=== PATIENT | female | born 1940 | race Caucasian/White ===

== ENCOUNTER → 2017-01-18 | Outpatient (CLI) | payer OTHER | LOC: BMCIMAGING 09:39 | PROVIDERS: ATTEND Podiatrist Foot & Ankle Surgery | DX: M84.374A Stress fracture, right foot, initial encounter for fracture (principal); X58.XXXA Exposure to other specified factors, initial encounter ==

== ENCOUNTER → 2017-02-27 | Outpatient (CLI) | payer OTHER | LOC: BMCIMAGING 08:36 | PROVIDERS: ATTEND Podiatrist Foot & Ankle Surgery | DX: S92.324D Nondisplaced fracture of second metatarsal bone, right foot, subsequent encounter for fracture with routine healing (principal) ==

== ENCOUNTER → 2017-06-14 | Outpatient (CLI) | payer OTHER | LOC: BMCIMAGING 10:49 | PROVIDERS: ATTEND Podiatrist Foot & Ankle Surgery | DX: M25.571 Pain in right ankle and joints of right foot (principal) ==

== ENCOUNTER → 2017-08-22 | Outpatient (CLI) | payer OTHER ==
[~2017-08-22] MED LIST: BUPIVACAINE 0.5% 30 ML SDV ONE
== END ==
LOC: FIMAGING 09:15
PROVIDERS: ATTEND Surgery
DX: Z12.31 Encounter for screening mammogram for malignant neoplasm of breast (principal); Z85.3 Personal history of malignant neoplasm of breast
CPT/HCPCS: G0202

== ENCOUNTER → 2018-01-22 | Outpatient (CLI) | payer OTHER | LOC: FIMAGING 09:05 | PROVIDERS: ATTEND Internal Medicine | DX: Z13.820 Encounter for screening for osteoporosis (principal); M85.89 Other specified disorders of bone density and structure, multiple sites; M48.54XA Collapsed vertebra, not elsewhere classified, thoracic region, initial encounter for fracture; Z78.0 Asymptomatic menopausal state ==

== ENCOUNTER 2018-05-02 07:14 | Emergency (ER) | payer OTHER ==
[2018-05-02] MEDS ORDERED: NS 1,000 ML IV ONE (07:43)
--- NOTE | 2018-05-02 07:45 | EDPHY ---
HPI/HX/ROS/PE/MDM Narrative: CHIEF COMPLAINT:"Can not pee." HPI: The patient is a 77-year-old female with history of hypertension. She states that 3 days ago she was diagnosed with the UTI and was initially started on Bactrim. She developed a"funny feeling"around her mouth but no rash and was switched to Macrobid 2 days ago. This morning she awoke and felt like she was unable to urinate. She denies fever, abdominal pain. She states that she has only been drinking 4 oz glass of water a couple times a day. She denies chest pain or shortness of breath. REVIEW OF SYSTEMS: Aside from elements discussed in the HPI, a comprehensive 10-point review of systems was reviewed and is negative. PMH: Includes hypertension, no known history of kidney disease. SOCIAL HISTORY: , lives with . PHYSICAL EXAM: General:Patient is alert, in no acute distress. ENT:Eyes are normal to inspection. ENT inspection normal. Neck: Normal inspection. Full range of motion. Respiratory:No respiratory distress. Breath sounds normal bilaterally. Cardiovascular: Regular rate and rhythm. Strong peripheral pulses. Normal cap refill. Abdomen:The abdomen is nontender to palpation. There are no peritoneal signs. There are normal bowel sounds. Back: Normal to inspection. No tenderness to palpation. Skin: Normal color. No rash. Warm and dry. Extremities: Splint is noted on the left lower extremity. Neuro: Oriented x3. Normal motor function. Normal sensory function. MDM: This patient presents with proceed inability to urinate, but is able to urinate a small amount here which is very concentrated. We performed blood work to ensure that there are no signs of acute renal failure, thankfully her creatinine is normal. We treated her with 1 L of IV normal saline and she is able to urinate. I think she is safe for discharge home with close follow-up by her PCP. There are no signs of septic shock or acute abdomen. - Data Points Laboratory Results: 05/02/18 05/02/18 07:56 07:30 POC Hgb 13.3 gm/dL gm/dL (12.6-16.3) POC Hct 39 % % (38-47) POC Sodium 139 mEq/L mEq/L (135-145) POC Potassium 3.7 mEq/L mEq/L (3.3-5.0) POC Chloride 104 mEq/L mEq/L (97-110) POC BUN 13 mg/dL mg/dL (7-23) POC Creatinine 1.0 mg/dL mg/dL (0.6-1.0) POC Glucose 96 mg/dL mg/dL (70-100) Urine Color ORANGE Urine Appearance HAZY Urine pH 5.5 (5.0-7.5) Ur Specific [place] >= 1.030 (1.002-1.030) Urine Protein 1+ H (NEGATIVE) Urine Ketones TRACE H (NEGATIVE) Urine Blood NEGATIVE (NEGATIVE) Urine Nitrate TNP Urine Bilirubin NEGATIVE (NEGATIVE) Urine Urobilinogen 1.0 EU EU (0.2-1.0) Ur Leukocyte Esterase TNP Urine Glucose NEGATIVE (NEGATIVE) Medications Given: Discontinued Medications Sodium Chloride (Ns) 1,000 mls @ 0 mls/hr IV EDNOW ONE; Wide Open PRN Reason: Protocol Stop: 05/02/18 07:44 Last Admin: 05/02/18 07:53 Dose: 1,000 mls Point of Care Test Results: Chemistry 05/02/18 07:56 POC Sodium 139 mEq/L mEq/L (135-145) POC Potassium 3.7 mEq/L mEq/L (3.3-5.0) POC Chloride 104 mEq/L mEq/L (97-110) POC BUN 13 mg/dL mg/dL (7-23) POC Creatinine 1.0 mg/dL mg/dL (0.6-1.0) POC Glucose 96 mg/dL mg/dL (70-100) ISTAT H&H 05/02/18 07:56 POC Hgb 13.3 gm/dL gm/dL (12.6-16.3) POC Hct 39 % % (38-47) General Time Seen by Provider: 05/02/18 07:27 Initial Vital Signs: Initial Vital Signs Temperature (C) 36.5 C 05/02/18 07:19 Heart Rate 59 L 05/02/18 07:19 Respiratory Rate 16 05/02/18 07:19 Blood Pressure 156/77 H 05/02/18 07:19 O2 Sat (%) 97 05/02/18 07:19 O2 Delivery Mode Room Air Allergies/Adverse Reactions: Sulfa (Sulfonamide Antibiotics) Allergy (Verified 05/02/18 07:17) Home Medications: Medication Instructions Recorded Irbesartan/Hydrochlorothiazide 0.5 each PO DAILY 08/29/15 [Avalide 150-12.5 mg Tablet] SIMVASTATIN 10 mg PO HS 08/29/15 Macrobid 05/02/18 Departure - Departure Disposition: Home, Routine, Self-Care Clinical Impression: Dehydration, Urinary tract infection Condition: Good Instructions: Dehydration (ED) Additional Instructions: Drink plenty of water. Follow up with your primary physician within 72 hr. Return to the emergency department for fever, abdominal pain, decreased urination or other concerns. Referrals: Carolyn Benavidez MD [Primary Care Provider] - As per Instructions
[2018-05-02 09:33] VITALS: BP 151/79
== END 2018-05-02 09:33 | disposition home or self-care (01) ==
DX: N39.0 Urinary tract infection, site not specified (principal); E86.9 Volume depletion, unspecified; I10 Essential (primary) hypertension
CPT/HCPCS: 82435-PO; 82565-PO; 82947-PO; 84132-PO; 84295-PO; 84520-PO; 85014-PO

== ENCOUNTER → 2018-09-08 | Outpatient (CLI) | payer OTHER | LOC: FIMAGING 15:32 | PROVIDERS: ATTEND Internal Medicine | DX: Z12.31 Encounter for screening mammogram for malignant neoplasm of breast (principal); Z85.3 Personal history of malignant neoplasm of breast; Z92.3 Personal history of irradiation ==

== ENCOUNTER 2018-11-05 13:29 | Emergency (ER) | payer OTHER ==
[2018-11-05 14:09] VITALS: BP 136/81
--- NOTE | 2018-11-05 14:16 | EDPHY ---
H & P Time Seen by Provider: 11/05/18 13:40 HPI/ROS: HPI Elevated blood pressure. 78-year-old female by private vehicle with her . The patient has a history of insomnia and hypertension. She reports that for the last 2-3 days or blood pressures have been elevated. She reports this morning her blood pressure has been elevated even more so when she felt a sensation of pulsating in her temples which she describes as mild lightheadedness associated with this. She also tells me that she has had a hard time sleeping. She has tried multiple different sleep medications and still has a hard time sleeping. She is feeling better at this time. She denies any chest pain. No shortness of breath. No problems urinating. No headache. No blurry vision. No lightheadedness currently. ROS: Constitutional: No fever, no chills. As above. Eyes: No discharge. No changes in vision. Respiratory: No cough. No shortness of breath. Cardiac: No chest pain, no palpitations. Gastrointestinal: No abdominal pain, no vomiting, no diarrhea. Genitourinary: No hematuria. No dysuria or increased frequency with urination. Musculoskeletal: No back pain. No neck pain. No myalgias or arthralgias. Neurological: No headache. No focal weakness or altered sensation. Past medical history: Hypertension, hyperlipidemia, meniscus repair, left knee replacement, tonsillectomy, appendectomy, left foot surgery. Her primary care physician is Dr. Carolyn Benavidez. Social history: Nonsmoker. No alcohol. Here with her . Physical Exam: General Appearance: Alert, no distress. This patient is responding to questions appropriately and in full sentences. This patient appears well- hydrated and well-nourished. Eyes: Pupils equal and round no pallor or injection. No lid edema, erythema or injection. Respiratory: There are no retractions, lungs are clear to auscultation with good air movement bilaterally. Cardiovascular: Regular rate and rhythm. No murmur. Gastrointestinal: Abdomen is soft and nontender, no masses, bowel sounds normal. No focal tenderness at McBurney's point. No Montes sign. Neurological: Motor sensory function is grossly intact. Cranial nerves are normal. Gait is normal. Skin: Warm and dry, no rashes. Musculoskeletal: Neck is supple and nontender. Extremities are symmetrical. All joints range without pain or impingement. Psychiatric: No agitation. No depression. Database: EKG: EKG time is 1:51 p.m.; EKG shows a narrow complex normal sinus rhythm with a ventricular rate of 51. Atrial premature complex noted. The OK, QRS, QT intervals are within normal limits. There are no ST-T wave changes indicative of ischemic or injury pattern. No evidence of right heart strain. Interpreted by me. Imaging: Procedures: Emergency department course: Triage vital signs reviewed. She is hypertensive at 182/86. Triage vital signs are otherwise normal. The patient presents to the emergency department concerned about her elevated blood pressure. Other than noted above she has been asymptomatic and she has been asymptomatic in the emergency department. On my evaluation of the patient her blood pressure is 143/72. Repeat blood pressure at 2:09 p.m. is 136/81. I discussed this with her. She is feeling much better. At this time she does feel comfortable going home with her . I do not feel she requires any additional emergency department workup. I explained that her lack of sleep may be causing her blood pressure to be elevated. She will follow up with her primary care physician Dr. Carolyn Benavidez in the next 1-2 days for re-evaluation. She currently takes Ambien as needed to help her sleep. Return to emergency department precautions were reviewed with her. All of her questions were answered. She was discharged from the emergency department in good condition with her . Differential Diagnosis: The differential diagnosis on this patient includes but is not limited to uncontrolled hypertension. CVA, hypertensive emergency unlikely. This represents a partial list of diagnoses considered. These considerations are based on history, physical exam, past history, reassessment and diagnostic testing. Smoking Status: Never smoked Constitutional: Initial Vital Signs Temperature (C) 36.4 C 11/05/18 13:32 Heart Rate 98 11/05/18 13:32 Respiratory Rate 16 11/05/18 13:32 Blood Pressure 182/86 H 11/05/18 13:32 O2 Sat (%) 92 11/05/18 13:32 O2 Delivery Mode Room Air Allergies/Adverse Reactions: Sulfa (Sulfonamide Antibiotics) Allergy (Verified 05/02/18 07:17) Home Medications: Medication Instructions Recorded Irbesartan/Hydrochlorothiazide 0.5 each PO DAILY 08/29/15 [Avalide 150-12.5 mg Tablet] SIMVASTATIN 10 mg PO HS 08/29/15 Macrobid 05/02/18 Departure - Departure Disposition: Home, Routine, Self-Care Clinical Impression: Hypertension, Insomnia Condition: Good Instructions: Hypertension (ED), Insomnia (ED) Additional Instructions: Read and follow provided instructions. Follow-up with your primary care physician in 1-2 days for re-evaluation as discussed. Explained to Dr. Benavidez even having a hard time sleeping. Dr. Benavidez will also further manage your blood pressure. Continue taking your blood pressure medication as prescribed. Return to the emergency department for shortness of breath, chest pain, changes in vision, headache or other serious concerns. Referrals: Carolyn Benavidez MD [Primary Care Provider] - As per Instructions
--- NOTE | 2018-11-06 22:40 | CPEKG ---
Test Reason : OPEN Blood Pressure : / mmHG Vent. Rate : 051 BPM Atrial Rate : 052 BPM P-R Int : 174 ms QRS Dur : 105 ms QT Int : 455 ms P-R-T Axes : 036 006 032 degrees QTc Int : 420 ms Sinus rhythm Atrial premature complex Abnormal R-wave progression, early transition Minimal ST elevation, inferior leads Confirmed by Renetta Gonzalez ([id number] on 11/06/2018 10:39:36 PM Referred By: Renetta Gonzalez Confirmed By:Renetta Gonzalez
== END 2018-11-05 14:25 | disposition home or self-care (01) ==
DX: I10 Essential (primary) hypertension (principal); G47.00 Insomnia, unspecified; E78.5 Hyperlipidemia, unspecified